=== PATIENT | male | born 1990 | race American Indian/Alaskan Native ===

== ENCOUNTER 2024-12-10 02:45 | Emergency (ER) | payer MEDICAID, OTHER ==
[2024-12-10 03:23] LABS: AMPHETAMINES,URINE NEGATIVE (NEGATIVE); BARBITURATES,URINE POSITIVE (NEGATIVE); MDMA (ECSTASY), URINE NEGATIVE (NEGATIVE); METHAMPHETAMINES,URINE POSITIVE (NEGATIVE); OPIATES,URINE NEGATIVE (NEGATIVE); OXYCODONE,URINE NEGATIVE (NEGATIVE); PHENCYCLIDINE,URINE NEGATIVE (NEGATIVE); TCA,URINE NEGATIVE (NEGATIVE)
[2024-12-10] MEDS: Flumazenil 0.1 MG/ML 5 ML MDV IVPUSH ONE (03:37)
[2024-12-10 03:45] LABS: BASOPHILS ABSOLUTE AUTO 0.04 10^3/uL (0.00-0.50); BASOPHILS PERCENT AUTO 0.6 % (0-1); EOSINOPHILS ABSOLUTE AUTO 0.41 10^3/uL (0.00-1.50); EOSINOPHILS PERCENT AUTO 6.2 % (0-6); IMMATURE GRAN ABSOLUTE AUTO 0.01 10^3/uL (0.00-0.49); IMMATURE GRAN PERCENT AUTO 0.2 % (0.0-4.9); LYMPHOCYTES ABSOLUTE AUTO 1.74 10^3/uL (0.60-5.00); LYMPHOCYTES PERCENT AUTO 26.2 % (24-44); MONOCYTES ABSOLUTE AUTO 0.40 10^3/uL (0.00-1.50); MONOCYTES PERCENT AUTO 6.0 % (0-10); NEUTROPHILS ABSOLUTE AUTO 4.04 x10^3/uL (1.80-8.00); NEUTROPHILS PERCENT AUTO 60.8 % (41-71); PLATELET COUNT,PLT 326 10^3/uL (150-400); RED BLOOD CELL COUNT 4.48 x10^6/uL (4.50-6.00); WHITE BLOOD CELL COUNT,WBC 6.6 10^3/uL (4.0-11.0)
[2024-12-10 03:53] LABS: INR 0.97 (0.92-1.18); PTT,PARTIAL THROMBOPLSTIN TIME 25.0 SEC (20.0-30.0)
[2024-12-10 03:55] LABS: ALANINE AMINOTRANSFERASE,ALT 25 U/L (12-78); ASPARTATE AMNIOTRANSFERASE,AST 18 U/L (15-37); BILIRUBIN TOTAL 0.3 mg/dL (0.0-1.0); BLOOD UREA NITROGEN,BUN 7 mg/dL (7-18); CARBON DIOXIDE,CO2 28 mmol/L (21-32); CHLORIDE,CL 111 mEq/L (98-106); CREATININE 1.1 mg/dL (0.7-1.3); EST CRCL DRUG DOSING (CG) 89.82 mL/min; ETHANOL BLOOD MEDICAL 173 mg/dL (0-3); GLUCOSE RANDOM 120 mg/dL (75-99); POTASSIUM,K 3.8 mEq/L (3.5-5.0); PROTEIN TOTAL,TP 8.0 g/dL (6.4-8.2); SODIUM,NA 148 mEq/L (136-145)
[2024-12-10 03:56] LABS: ESTIMATED GFR 89 mL/min (>=60)
== END 2024-12-10 07:40 ==
LOC: CC.ED 02:45
DX: R41.82 Altered mental status, unspecified (principal); Z91.013 Allergy to seafood
CPT/HCPCS: 36415; 70450; 80053; 80305-QW; 80307; 85025; 85610; 85730; 86140; 96361; 96374; 96375; 99284; 99285-25; J2310; J3490; J7030